=== PATIENT | female | born 1945 | race Caucasian/White ===

== ENCOUNTER 2018-06-16 13:39 | Emergency (ER) | payer MEDICARE, OTHER, SELFPAY ==
[~2018-06-16] VITALS: Ht 167.6 cm; Wt 58.7 kg
[2018-06-16 13:46] VITALS: BP 151/81
[2018-06-16] MEDS ORDERED: METF500T17 PO (14:02)
[2018-06-16] MEDS ORDERED: INSULIN (14:03)
[2018-06-16] MEDS ORDERED: IBUPROFEN 200 MG TABLET ONE (14:25)
[2018-06-16] MEDS ORDERED: IBUPROFEN 200 MG TABLET PO ONE (14:30)
== END 2018-06-16 15:16 | disposition home or self-care (01) ==
LOC: ED 15:01
DX: G89.11 Acute pain due to trauma (principal); M54.6 Pain in thoracic spine; M79.662 Pain in left lower leg; E11.9 Type 2 diabetes mellitus without complications; V49.09XA Driver injured in collision with other motor vehicles in nontraffic accident, initial encounter; Y93.89 Activity, other specified; Y92.410 Unspecified street and highway as the place of occurrence of the external cause; Y99.8 Other external cause status
CPT/HCPCS: 99283

== ENCOUNTER 2020-01-15 13:28 | Inpatient (IN) | payer MEDICARE ==
[~2020-01-15] VITALS: Ht 167.6 cm; Wt 62.4 kg
[~2020-01-15 13:28] MED LIST: INSULIN; METF500T17 PO
--- NOTE | 2020-01-15 14:07 | NUR ---
PT THROUGHLY CLEANED FROM [place] AREA TO FEET. PT INCONTINENT OF STOOL FOLLOWING FALL AT HOME.
[2020-01-15] MEDS ORDERED: MORPHINE SULFATE 4 MG/ML, 1ML ONE ×3 (15:10→17:53)
[2020-01-15] MEDS: MORPHINE SULFATE 4 MG/ML, 1ML IVPush PRN ×3 (15:17→18:04)
[2020-01-15 15:25] LABS: BASOPHILS # (AUTO) 0.02 x10^3/uL (0-0.1); BASOPHILS % (AUTO) 0 % (0-1); EOSINOPHILS # (AUTO) 0.04 x10^3/uL (0-0.4); EOSINOPHILS % (AUTO) 0 % (1-7); LYMPHOCYTES # (AUTO) 1.03 x10^3/uL (1-3.4); LYMPHOCYTES % (AUTO) 9 % (22-44); MD NO; MEAN CORPUSCULAR HEMOGLOBIN 32.9 pg (27.0-34.8); MEAN CORPUSCULAR HGB CONC 32.9 g/dL (32.4-35.8); MEAN CORPUSCULAR VOLUME 99.9 fL (80-100); MEAN PLATELET VOLUME 7.4 fL (7.4-10.4); MONOCYTES % (AUTO) 3 % (2-9); NEUTROPHILS # (AUTO) 9.85 x10^3/uL (1.8-6.8); NEUTROPHILS % (AUTO) 88 % (42-75); PLATELET COUNT 256 x10^3/uL (130-400); RED BLOOD COUNT 4.29 x10^6/uL (3.82-5.3); RED CELL DISTRIBUTION WIDTH 13.1 % (9.6-15.2)
--- NOTE | 2020-01-15 15:30 | NUR ---
PT PUT ON 2L NC AFTER GIVEN PAIN MEDICATIONS, 98% AT THIS TIME. PT REPORTS PAIN 3/10 "FEELS MUCH BETTER".CALL LIGHT IN REACH. LAW IN ROOM FOR UPDATED. PT EDUCATED ON NPO STATUS.
[2020-01-15 15:35] LABS: ALBUMIN 3.7 g/dL (3.4-5.0); ANION GAP 12 mmol/L (5-15); CALCIUM 9.1 mg/dL (8.5-10.1); CHLORIDE 104 mmol/L (98-107); CREATININE 0.98 mg/dL (0.55-1.02)
[2020-01-15] MEDS ORDERED: MORPHINE SULFATE 4 MG/ML, 1ML IVPush PRN (16:30)
[2020-01-15] MEDS: SODIUM CHLORIDE 0.9% 1,000 ML IV SCH (16:34)
[2020-01-15] MEDS ORDERED: ONDANSETRON ODT 4 MG PO PRN (17:00)
[2020-01-15] MEDS ORDERED: ONDANSETRON 2MG/ML, 2ML IVPush PRN (17:00)
[2020-01-15] MEDS: morphine SULFATE 10 MG/ML, 1ML IVPush PRN (21:18)
[2020-01-15] MEDS: INSULIN LISPRO 100 UNITS/ML, PEN SQ-INSULIN SCH (21:19)
[2020-01-15 21:28] VITALS: BP 126/75
[2020-01-16 02:37] VITALS: BP 127/77
[2020-01-16] MEDS: morphine SULFATE 10 MG/ML, 1ML IVPush PRN ×2 (03:17→06:17)
[2020-01-16 05:08] LABS: BASOPHILS # (AUTO) 0.05 x10^3/uL (0-0.1); BASOPHILS % (AUTO) 1 % (0-1); EOSINOPHILS # (AUTO) 0.14 x10^3/uL (0-0.4); EOSINOPHILS % (AUTO) 3 % (1-7); LYMPHOCYTES # (AUTO) 1.65 x10^3/uL (1-3.4); LYMPHOCYTES % (AUTO) 30 % (22-44); MD NO; MEAN CORPUSCULAR HEMOGLOBIN 33.7 pg (27.0-34.8); MEAN CORPUSCULAR HGB CONC 33.8 g/dL (32.4-35.8); MEAN CORPUSCULAR VOLUME 99.8 fL (80-100); MEAN PLATELET VOLUME 7.8 fL (7.4-10.4); MONOCYTES # (AUTO) 0.61 x10^3/uL (0.2-0.8); MONOCYTES % (AUTO) 11 % (2-9); NEUTROPHILS # (AUTO) 3.05 x10^3/uL (1.8-6.8); NEUTROPHILS % (AUTO) 56 % (42-75); PLATELET COUNT 200 x10^3/uL (130-400); RED BLOOD COUNT 3.64 x10^6/uL (3.82-5.3); RED CELL DISTRIBUTION WIDTH 13.2 % (9.6-15.2)
[2020-01-16 05:13] LABS: ANION GAP 9 mmol/L (5-15); CALCIUM 8.5 mg/dL (8.5-10.1); CHLORIDE 104 mmol/L (98-107)
[2020-01-16 05:14] LABS: CREATININE 0.98 mg/dL (0.55-1.02)
[2020-01-16 06:54] VITALS: BP 117/70
[2020-01-16] MEDS: INSULIN LISPRO 100 UNITS/ML, PEN SQ-INSULIN SCH ×4 (07:00→21:05)
[2020-01-16] MEDS ORDERED: FENTANYL PF 250 MCG/5ML ONE (07:19)
[2020-01-16] MEDS ORDERED: MIDAZOLAM 1 MG/ML, 2ML ONE (07:26)
[2020-01-16] MEDS ORDERED: ONDANSETRON 2MG/ML, 2ML IVPush PRN (07:30)
[2020-01-16] MEDS ORDERED: ACETAMINOPHEN 325 MG TABLET PO PRN (07:30)
[2020-01-16] MEDS ORDERED: hydrALAzine 20 MG/ML, 1ML IV PRN (07:30)
[2020-01-16] MEDS ORDERED: METOPROLOL 1 MG/ML, 5ML IV PRN (07:30)
[2020-01-16] MEDS ORDERED: morphine SULFATE 10 MG/ML, 1ML IVPush PRN (07:30)
[2020-01-16] MEDS ORDERED: OXYcodone 5 MG/5 ML ORAL.SOL UDC PO PRN (07:30)
[2020-01-16] MEDS ORDERED: PROMETHAZINE 25 MG/ML, 1ML IVPush PRN (07:30)
[2020-01-16] MEDS ORDERED: DEXAMETHASONE 4 MG/ML, 1ML ONE (07:45)
[2020-01-16] MEDS ORDERED: PROPOFOL 10 MG/ML, 20ML ONE (08:43)
[2020-01-16] MEDS ORDERED: ONDANSETRON 2MG/ML, 2ML ONE (08:43)
[2020-01-16] MEDS ORDERED: CEFAZOLIN 1,000 MG ONE (08:43)
[2020-01-16] MEDS ORDERED: FENTANYL PF 100 MCG/2ML ONE (09:05)
[2020-01-16] MEDS: FENTANYL PF 100 MCG/2ML IV PRN ×2 (09:09→09:22)
[2020-01-16] MEDS ORDERED: ACETAMINOPHEN 650 MG/20.3 ML UDC ONE (09:26)
[2020-01-16] MEDS ORDERED: OXYcodone 5 MG/5 ML ORAL.SOL UDC ONE (09:26)
[2020-01-16] MEDS ORDERED: DIPHENHYDRAMINE 50 MG/ML, 1ML ONE (10:12)
[2020-01-16] MEDS ORDERED: DIPHENHYDRAMINE 50 MG/ML, 1ML IVPush PRN (10:30)
[2020-01-16] MEDS: OXYcodone/APAP 5/325MG TABLET PO PRN ×2 (13:47→19:26)
[2020-01-16] MEDS: SODIUM CHLORIDE 0.9% 1,000 ML IV SCH (13:48)
[2020-01-16 14:08] VITALS: BP 110/69
[2020-01-16] MEDS: CEFAZOLIN PMX 1GM/50ML 50 ML IVPB SCH (16:50)
[2020-01-16 19:26] VITALS: BP 145/70
[2020-01-17 00:09] VITALS: BP 149/72
[2020-01-17] MEDS: OXYcodone/APAP 5/325MG TABLET PO PRN ×5 (00:09→21:21)
[2020-01-17] MEDS: CEFAZOLIN PMX 1GM/50ML 50 ML IVPB SCH (01:31)
[2020-01-17] MEDS: SODIUM CHLORIDE 0.9% 1,000 ML IV SCH (03:31)
[2020-01-17] MEDS: morphine SULFATE 10 MG/ML, 1ML IVPush PRN (03:32)
[2020-01-17] MEDS: ENOXAPARIN 40 MG/0.4 ML SQ SCH (05:00)
[2020-01-17 06:47] LABS: ANION GAP 5 mmol/L (5-15); CALCIUM 8.6 mg/dL (8.5-10.1); CHLORIDE 102 mmol/L (98-107)
[2020-01-17 06:48] LABS: CREATININE 0.82 mg/dL (0.55-1.02)
[2020-01-17] MEDS: INSULIN LISPRO 100 UNITS/ML, PEN SQ-INSULIN SCH ×4 (07:43→21:19)
[2020-01-17 08:13] VITALS: BP 113/62
[2020-01-17 09:57] LABS: MEAN CORPUSCULAR HEMOGLOBIN 33.5 pg (27.0-34.8); MEAN CORPUSCULAR HGB CONC 33.2 g/dL (32.4-35.8); MEAN CORPUSCULAR VOLUME 100.8 fL (80-100); MEAN PLATELET VOLUME 7.8 fL (7.4-10.4); PLATELET COUNT 202 x10^3/uL (130-400); RED BLOOD COUNT 2.59 x10^6/uL (3.82-5.3); RED CELL DISTRIBUTION WIDTH 12.8 % (9.6-15.2)
[2020-01-17 10:24] LABS: BASOPHILS # (AUTO) 0.04 x10^3/uL (0-0.1); BASOPHILS % (AUTO) 1 % (0-1); EOSINOPHILS # (AUTO) 0.01 x10^3/uL (0-0.4); EOSINOPHILS % (AUTO) 0 % (1-7); LYMPHOCYTES # (AUTO) 1.27 x10^3/uL (1-3.4); LYMPHOCYTES % (AUTO) 18 % (22-44); MD SCAN; MONOCYTES # (AUTO) 0.66 x10^3/uL (0.2-0.8); MONOCYTES % (AUTO) 9 % (2-9); NEUTROPHILS # (AUTO) 5.11 x10^3/uL (1.8-6.8); NEUTROPHILS % (AUTO) 72 % (42-75)
[2020-01-17 14:46] VITALS: BP 131/61
[2020-01-17 20:02] VITALS: BP 123/61
[2020-01-17] MEDS ORDERED: INSU100V13 SQ (21:24)
[2020-01-17] MEDS ORDERED: X PO (21:26)
[2020-01-17] MEDS ORDERED: DAPA10TA PO (21:38)
[2020-01-17] MEDS ORDERED: PRAV80TA2 PO (21:38)
[2020-01-17] MEDS ORDERED: LISI10TA2 PO (21:38)
[2020-01-17] MEDS ORDERED: TRAZ-96 PO (21:38)
[2020-01-18] MEDS: OXYcodone/APAP 5/325MG TABLET PO PRN ×4 (01:39→21:01)
[2020-01-18 02:07] VITALS: BP 137/69
[2020-01-18] MEDS: TRAZODONE 50MG TABLET PO PRN ×2 (02:22→21:02)
[2020-01-18] MEDS: ENOXAPARIN 40 MG/0.4 ML SQ SCH (05:20)
[2020-01-18 05:44] LABS: BASOPHILS # (AUTO) 0.06 x10^3/uL (0-0.1); BASOPHILS % (AUTO) 1 % (0-1); EOSINOPHILS # (AUTO) 0.13 x10^3/uL (0-0.4); EOSINOPHILS % (AUTO) 2 % (1-7); LYMPHOCYTES # (AUTO) 1.92 x10^3/uL (1-3.4); LYMPHOCYTES % (AUTO) 28 % (22-44); MD NO; MEAN CORPUSCULAR HEMOGLOBIN 33.5 pg (27.0-34.8); MEAN CORPUSCULAR HGB CONC 33.3 g/dL (32.4-35.8); MEAN CORPUSCULAR VOLUME 100.6 fL (80-100); MEAN PLATELET VOLUME 7.6 fL (7.4-10.4); MONOCYTES # (AUTO) 0.56 x10^3/uL (0.2-0.8); MONOCYTES % (AUTO) 8 % (2-9); NEUTROPHILS # (AUTO) 4.25 x10^3/uL (1.8-6.8); NEUTROPHILS % (AUTO) 62 % (42-75); PLATELET COUNT 191 x10^3/uL (130-400); RED BLOOD COUNT 2.43 x10^6/uL (3.82-5.3); RED CELL DISTRIBUTION WIDTH 13.2 % (9.6-15.2)
[2020-01-18 05:54] LABS: CHLORIDE 101 mmol/L (98-107)
[2020-01-18 06:16] LABS: ANION GAP 8 mmol/L (5-15); CALCIUM 8.5 mg/dL (8.5-10.1)
[2020-01-18 06:56] VITALS: BP 123/62
[2020-01-18] MEDS: INSULIN LISPRO 100 UNITS/ML, PEN SQ-INSULIN SCH ×4 (09:38→21:03)
[2020-01-18] MEDS: LISINOPRIL 10 MG TABLET PO SCH (12:26)
[2020-01-18 13:48] VITALS: BP 121/65
[2020-01-18 20:45] VITALS: BP 106/52
[2020-01-18] MEDS: PRAVASTATIN 40 MG TABLET PO SCH (20:59)
[2020-01-18] MEDS: INSULIN GLARGINE 100 UNITS/ML, PEN SQ-INSULIN SCH (21:04)
[2020-01-19 00:18] VITALS: BP 110/57
[2020-01-19 05:02] LABS: MEAN CORPUSCULAR HEMOGLOBIN 33.6 pg (27.0-34.8); MEAN CORPUSCULAR HGB CONC 33.6 g/dL (32.4-35.8); MEAN CORPUSCULAR VOLUME 100.1 fL (80-100); MEAN PLATELET VOLUME 7.5 fL (7.4-10.4); PLATELET COUNT 212 x10^3/uL (130-400); RED BLOOD COUNT 2.07 x10^6/uL (3.82-5.3); RED CELL DISTRIBUTION WIDTH 13.1 % (9.6-15.2)
[2020-01-19 05:09] LABS: CHLORIDE 103 mmol/L (98-107)
[2020-01-19 05:16] LABS: ANION GAP 8 mmol/L (5-15); CALCIUM 8.1 mg/dL (8.5-10.1); CREATININE 0.76 mg/dL (0.55-1.02)
[2020-01-19 05:36] LABS: BASOPHILS # (AUTO) 0.04 x10^3/uL (0-0.1); BASOPHILS % (AUTO) 1 % (0-1); EOSINOPHILS # (AUTO) 0.39 x10^3/uL (0-0.4); EOSINOPHILS % (AUTO) 6 % (1-7); LYMPHOCYTES # (AUTO) 2.09 x10^3/uL (1-3.4); LYMPHOCYTES % (AUTO) 34 % (22-44); MD SCAN; MONOCYTES # (AUTO) 0.46 x10^3/uL (0.2-0.8); MONOCYTES % (AUTO) 8 % (2-9); NEUTROPHILS # (AUTO) 3.19 x10^3/uL (1.8-6.8); NEUTROPHILS % (AUTO) 52 % (42-75)
[2020-01-19] MEDS: OXYcodone/APAP 5/325MG TABLET PO PRN ×4 (06:15→19:55)
[2020-01-19 06:29] VITALS: BP 116/61
[2020-01-19] MEDS: ENOXAPARIN 40 MG/0.4 ML SQ SCH (08:36)
[2020-01-19] MEDS: LISINOPRIL 10 MG TABLET PO SCH ×2 (08:43→08:49)
[2020-01-19] MEDS: INSULIN LISPRO 100 UNITS/ML, PEN SQ-INSULIN SCH ×4 (08:43→21:23)
[2020-01-19 08:46] VITALS: BP 95/53
[2020-01-19] MEDS ORDERED: BISACODYL 10 MG SUPP PR PRN (11:30)
[2020-01-19 12:18] VITALS: BP 106/59
[2020-01-19] MEDS: SENNA/DOCUSATE TABLET PO SCH (13:08)
[2020-01-19] MEDS: POLYETHYLENE GLYCOL 17 GM PACKET PO SCH (13:08)
[2020-01-19 19:21] VITALS: BP 129/69
[2020-01-19] MEDS ORDERED: LISINOPRIL 10 MG TABLET PO SCH (21:00)
[2020-01-19] MEDS: TRAZODONE 50MG TABLET PO PRN (21:22)
[2020-01-19] MEDS: PRAVASTATIN 40 MG TABLET PO SCH (21:22)
[2020-01-19] MEDS: INSULIN GLARGINE 100 UNITS/ML, PEN SQ-INSULIN SCH (21:23)
[2020-01-20 01:02] VITALS: BP 113/69
[2020-01-20 05:00] LABS: MEAN CORPUSCULAR HEMOGLOBIN 33.6 pg (27.0-34.8); MEAN CORPUSCULAR HGB CONC 33.3 g/dL (32.4-35.8); MEAN CORPUSCULAR VOLUME 100.7 fL (80-100); MEAN PLATELET VOLUME 7.3 fL (7.4-10.4); PLATELET COUNT 296 x10^3/uL (130-400); RED BLOOD COUNT 2.17 x10^6/uL (3.82-5.3); RED CELL DISTRIBUTION WIDTH 13.2 % (9.6-15.2)
[2020-01-20 05:08] LABS: ANION GAP 5 mmol/L (5-15); CALCIUM 8.1 mg/dL (8.5-10.1); CHLORIDE 101 mmol/L (98-107); CREATININE 0.88 mg/dL (0.55-1.02)
[2020-01-20 05:49] LABS: BASOPHILS # (AUTO) 0.08 x10^3/uL (0-0.1); BASOPHILS % (AUTO) 1 % (0-1); EOSINOPHILS # (AUTO) 0.36 x10^3/uL (0-0.4); EOSINOPHILS % (AUTO) 5 % (1-7); LYMPHOCYTES # (AUTO) 1.91 x10^3/uL (1-3.4); LYMPHOCYTES % (AUTO) 28 % (22-44); MD SCAN; MONOCYTES % (AUTO) 9 % (2-9); NEUTROPHILS # (AUTO) 3.91 x10^3/uL (1.8-6.8); NEUTROPHILS % (AUTO) 57 % (42-75)
[2020-01-20] MEDS: OXYcodone/APAP 5/325MG TABLET PO PRN ×3 (06:21→13:57)
[2020-01-20 07:36] VITALS: BP 103/56
[2020-01-20] MEDS: INSULIN LISPRO 100 UNITS/ML, PEN SQ-INSULIN SCH ×2 (07:56→10:39)
[2020-01-20] MEDS: SENNA/DOCUSATE TABLET PO SCH (07:56)
[2020-01-20] MEDS: POLYETHYLENE GLYCOL 17 GM PACKET PO SCH (07:56)
[2020-01-20] MEDS ORDERED: OXYcodone/APAP 5/325MG PO (10:59)
[2020-01-20] MEDS ORDERED: SENN-193 PO (10:59)
[2020-01-20] MEDS ORDERED: ASPI81TA45 PO (11:03)
[2020-01-20 13:19] VITALS: BP 104/57
== END 2020-01-20 15:23 | disposition home health service (06) | DRG 481 ==
LOC: OR 16:29 → EDIP 17:07 → 4EST 19:03
PROVIDERS: ADMIT Internal Medicine; ATTEND Internal Medicine
PROC: 0QH736Z Insertion of Intramedullary Internal Fixation Device into Left Upper Femur, Percutaneous Approach (ICD-10-PCS; principal; 2020-01-16 07:30)
DX: S72.142A Displaced intertrochanteric fracture of left femur, initial encounter for closed fracture (principal); I45.2 Bifascicular block; E87.1 Hypo-osmolality and hyponatremia; D62 Acute posthemorrhagic anemia; L03.119 Cellulitis of unspecified part of limb; E78.5 Hyperlipidemia, unspecified; F17.200 Nicotine dependence, unspecified, uncomplicated; W18.09XA Striking against other object with subsequent fall, initial encounter; S72.22XA Displaced subtrochanteric fracture of left femur, initial encounter for closed fracture; S61.459A Open bite of unspecified hand, initial encounter; Z20.828 Contact with and (suspected) exposure to other viral communicable diseases; E11.9 Type 2 diabetes mellitus without complications; Z90.710 Acquired absence of both cervix and uterus; W54.0XXA Bitten by dog, initial encounter; Y92.009 Unspecified place in unspecified non-institutional (private) residence as the place of occurrence of the external cause; Z79.899 Other long term (current) drug therapy
CPT/HCPCS: 36415; 71045; 76000; 80048; 82040; 82962; 85014; 85018; 85025; 87635; 93005; 99285; C1713; G0378; J0690; J1100; J1650; J2250; J2405; J2704; J3010; J1200; J1815; J2270; J7030

== ENCOUNTER → 2020-03-07 | Outpatient (CLI) | payer MEDICARE ==
[~2020-03-07] MED LIST changes: +ASPI81TA45 PO; +DAPA10TA PO; +INSU100V13 SQ; +LISI10TA2 PO; +OXYcodone/APAP 5/325MG PO; +PRAV80TA2 PO; +SENN-193 PO; +TRAZ-96 PO; +X PO
== END | disposition home or self-care (01) ==
LOC: RAD 16:14
PROVIDERS: ATTEND Orthopaedic Surgery
DX: S72.142A Displaced intertrochanteric fracture of left femur, initial encounter for closed fracture (principal); X58.XXXA Exposure to other specified factors, initial encounter; Y93.89 Activity, other specified; Y92.89 Other specified places as the place of occurrence of the external cause; Y99.8 Other external cause status